=== PATIENT | female | born 1955 | race Caucasian/White ===

== ENCOUNTER 2016-06-19 09:23 | Outpatient (CLI) | payer MEDICARE ==
[2016-06-19 12:44] LABS: Hemoglobin A1c 5.6 % (4.0-6.0)
== END 2016-06-19 09:24 ==
LOC: NAVSJIPCSP 09:23
PROVIDERS: ATTEND Internal Medicine
DX: E78.5 Hyperlipidemia, unspecified (principal); E08.40 Diabetes mellitus due to underlying condition with diabetic neuropathy, unspecified
CPT/HCPCS: 36415; 80061; 83036

== ENCOUNTER 2016-09-14 10:13 | Outpatient (CLI) | payer MEDICARE ==
[2016-09-14 13:32] LABS: Cardiac Risk 2.8 (Less than 4.5)
[2016-09-14 14:02] LABS: Hemoglobin A1c 5.7 % (4.0-6.0)
== END 2016-09-14 10:14 | disposition home or self-care (01) ==
LOC: NAVSJIPCSP 10:13
PROVIDERS: ATTEND Internal Medicine
DX: E78.5 Hyperlipidemia, unspecified (principal); E08.40 Diabetes mellitus due to underlying condition with diabetic neuropathy, unspecified
CPT/HCPCS: 36415; 80061; 83036

== ENCOUNTER 2016-12-23 09:14 | Outpatient (CLI) | payer MEDICARE ==
[2016-12-23 17:25] LABS: Hemoglobin A1c 5.7 % (4.0-6.0)
[2016-12-23 18:25] LABS: Cardiac Risk 3.2 (Less than 4.5)
== END 2016-12-23 09:15 | disposition home or self-care (01) ==
LOC: NAVSJIPCSP 09:14
PROVIDERS: ATTEND Internal Medicine
DX: E08.40 Diabetes mellitus due to underlying condition with diabetic neuropathy, unspecified (principal); E78.5 Hyperlipidemia, unspecified; Z79.899 Other long term (current) drug therapy
CPT/HCPCS: 36415; 80061; 83036

== ENCOUNTER 2017-01-28 23:42 | Emergency (ER) | payer MEDICARE ==
[2017-01-28] MEDS ORDERED: Acetaminophen 500 MG TAB ONE (23:53)
--- NOTE | 2017-01-29 07:00 | RAD ---
LEFT FOOT THREE VIEWS HISTORY: Left foot injury. FINDINGS: Lisfranc joint alignment is anatomic. Plantar arch is maintained. Plantar enthesophyte is noted. There is mild osteophytosis. No acute fracture or dislocation. IMPRESSION: No acute osseous abnormalities are demonstrated. POS: [facility]
== END 2017-01-29 00:25 | disposition home or self-care (01) ==
LOC: NAV ERS 23:42
DX: S93.602A Unspecified sprain of left foot, initial encounter (principal); E03.9 Hypothyroidism, unspecified; I10 Essential (primary) hypertension; F17.210 Nicotine dependence, cigarettes, uncomplicated; F32.9 Major depressive disorder, single episode, unspecified; G35 Multiple sclerosis; W01.0XXA Fall on same level from slipping, tripping and stumbling without subsequent striking against object, initial encounter

== ENCOUNTER 2018-04-28 09:32 | Emergency (ER) | payer MEDICARE ==
[2018-04-28] MEDS ORDERED: Lidocaine 1% (PF) 30 ML VIAL ONE ×2 (09:50→10:02)
[2018-04-28] MEDS ORDERED: Adacel (T-DAP) 0.5 ML SYRINGE ONE (10:15)
== END 2018-04-28 10:37 | disposition home or self-care (01) ==
LOC: NAV ERS 09:32
DX: S81.812A Laceration without foreign body, left lower leg, initial encounter (principal); E78.5 Hyperlipidemia, unspecified; I10 Essential (primary) hypertension; F32.9 Major depressive disorder, single episode, unspecified; F17.210 Nicotine dependence, cigarettes, uncomplicated; Z79.84 Long term (current) use of oral hypoglycemic drugs; Z79.899 Other long term (current) drug therapy; W25.XXXA Contact with sharp glass, initial encounter
CPT/HCPCS: 12002; 90471; 90715; J2001

== ENCOUNTER 2018-05-07 11:37 | Emergency (ER) | payer MEDICARE | END 2018-05-07 12:29 | disposition home or self-care (01) | LOC: NAV ERS 11:37 | DX: S81.812D Laceration without foreign body, left lower leg, subsequent encounter (principal); I10 Essential (primary) hypertension; E78.5 Hyperlipidemia, unspecified; E11.9 Type 2 diabetes mellitus without complications; F17.210 Nicotine dependence, cigarettes, uncomplicated; F32.9 Major depressive disorder, single episode, unspecified; E03.9 Hypothyroidism, unspecified; Z79.899 Other long term (current) drug therapy; Z79.84 Long term (current) use of oral hypoglycemic drugs ==

== ENCOUNTER 2018-09-21 02:47 | Emergency (ER) | payer MEDICARE ==
[2018-09-21] MEDS ORDERED: Promethazine HCl 25 MG/ML VIAL ONE (03:25)
[2018-09-21 03:45] LABS: ALT (SGPT) 29 U/L (8-55); AST (SGOT) 30 U/L (5-34); Albumin 4.5 g/dL (3.4-4.8); Alkaline Phosphatase 93 U/L (40-150); Anion Gap 18 mmol/L (10-20); BUN (Urea Nitrogen) 25 mg/dL (9.8-20.1); Bilirubin, Total 0.5 mg/dL (0.2-1.2); Calc. Creatinine Clearance 0 mL/min (70-130); Calcium 9.6 mg/dL (7.8-10.44); Carbon Dioxide 19 mmol/L (23-31); Chloride 103 mmol/L (98-107); Estimated GFR-MDRD 75; Globulin 2.6 g/dL (2.4-3.5); Glucose 180 mg/dL (80-115); Potassium 3.9 mmol/L (3.5-5.1); Protein, Total 7.1 g/dL (6.0-8.3); Sodium 136 mmol/L (136-145)
[2018-09-21 03:46] LABS: Band 37 % (5-11); Hemoglobin 14.8 g/dL (12.0-16.0); Lymphocytes 1 % (21-51); MDiff Complete? YES; Mean Corpuscular HGB CONC 32.3 g/dL (32.0-36.0); Mean Corpuscular Hemoglobin 27.3 pg (27.0-31.0); Mean Corpuscular Volume 84.5 fL (78.0-98.0); Mean Platelet Volume 7.5 fL (7.4-10.4); Monocytes 7 % (0-10); Neutrophil 55 % (42-75); Platelet Count 214 thou/uL (130-400); Platelet Morphology Comment Appears Adequate; RBC Distribution Width 13.2 % (11.5-14.5); RBC Morphology Normal; Red Blood Cell (RBC) Count 5.43 mill/uL (4.20-5.40); White Blood Cell (WBC) Count 7.6 thou/uL (4.8-10.8)
[2018-09-21 05:03] LABS: Bilirubin Negative (Negative); Blood, Urine Small (Negative); Clarity Clear (Clear); Glucose, Urine (Dipstick) Negative (Negative); Leukocyte Negative (Negative); Nitrite Negative (Negative); Protein, Urine (Dipstick) Negative (Neg-Trace); Urobilinogen 0.2 mg/dL (0.2-1.0); pH, Urine 5.5 (5.0-9.0)
[2018-09-21 05:05] LABS: Bacteria/HPF None Seen HPF (None Seen); RBC/HPF 0-3 HPF (0-3); Squamous Epithelial 0-3 HPF (0-3); WBC/HPF None Seen HPF (0-3)
== END 2018-09-21 05:33 | disposition home or self-care (01) ==
LOC: NAV ERS 02:47
DX: K52.9 Noninfective gastroenteritis and colitis, unspecified (principal); E11.9 Type 2 diabetes mellitus without complications; E03.9 Hypothyroidism, unspecified; E78.5 Hyperlipidemia, unspecified; I10 Essential (primary) hypertension; F32.9 Major depressive disorder, single episode, unspecified; F17.210 Nicotine dependence, cigarettes, uncomplicated; Z79.899 Other long term (current) drug therapy; Z79.84 Long term (current) use of oral hypoglycemic drugs
CPT/HCPCS: 80053; 81003; 81015; 82274; 85025; 96361; 96374; J2550

== ENCOUNTER 2022-09-24 12:48 | Emergency (ER) | payer MEDICARE ==
[2022-09-24] MEDS ORDERED: diphenhydrAMINE 25 MG CAP ONE (13:17)
[2022-09-24 13:48] LABS: Hemoglobin 13.8 g/dL (12.0-16.0); Mean Corpuscular HGB CONC 32.5 g/dL (32.0-36.0); Mean Corpuscular Hemoglobin 28.2 pg (27.0-31.0); Mean Corpuscular Volume 86.9 fl (78.0-98.0); Mean Platelet Volume 7.4 fL (7.4-10.4); Platelet Count 225 10x3/uL (130-400); RBC Distribution Width 11.8 % (11.5-14.5); Red Blood Cell (RBC) Count 4.87 mill/uL (4.20-5.40)
[2022-09-24 13:51] LABS: MDiff Complete? YES; Manual Diff?? YES
[2022-09-24 13:52] LABS: ALT (SGPT) 16 U/L (8-55); AST (SGOT) 14 U/L (5-34); Albumin 4.3 g/dL (3.4-4.8); Alkaline Phosphatase 86 U/L (40-110); Anion Gap 15 mmol/L (10-20); BUN (Urea Nitrogen) 21 mg/dL (9.8-20.1); Bilirubin, Total 0.3 mg/dL (0.2-1.2); Calc. Creatinine Clearance 0 mL/min (70-130); Calcium 9.8 mg/dL (7.8-10.44); Carbon Dioxide 24 mmol/L (23-31); Chloride 106 mmol/L (98-107); Estimated GFR 96; Globulin 2.4 g/dL (2.4-3.5); Glucose 119 mg/dL (80-115); Protein, Total 6.7 g/dL (5.8-8.1); Sodium 141 mmol/L (136-145)
[2022-09-24 13:54] LABS: Eosinophils 2 % (0-10); Lymphocytes 11 % (21-51); Monocytes 9 % (0-10); Neutrophil 77 % (42-75); Reactive Lymphocytes 1 % (0-10)
[2022-09-24 13:55] LABS: Platelet Morphology Comment Appears Adequate
== END 2022-09-24 14:08 | disposition home or self-care (01) ==
LOC: NAV ERS 12:48
DX: H53.8 Other visual disturbances (principal); T46.5X5A Adverse effect of other antihypertensive drugs, initial encounter; E11.9 Type 2 diabetes mellitus without complications; E78.5 Hyperlipidemia, unspecified; I10 Essential (primary) hypertension; F17.210 Nicotine dependence, cigarettes, uncomplicated
CPT/HCPCS: 36415; 80053; 85025; 99283

== ENCOUNTER 2024-05-15 10:28 | Emergency (ER) | payer MEDICARE ==
[2024-05-15] MEDS ORDERED: Ibuprofen 800 MG TAB ONE (11:00)
[2024-05-15] MEDS ORDERED: Acetaminophen 500 MG TAB ONE (11:05)
== END 2024-05-15 11:38 | disposition home or self-care (01) ==
LOC: NAV ERS 10:28
DX: M25.571 Pain in right ankle and joints of right foot (principal); E11.9 Type 2 diabetes mellitus without complications; E78.5 Hyperlipidemia, unspecified; I10 Essential (primary) hypertension; F17.210 Nicotine dependence, cigarettes, uncomplicated; Z79.84 Long term (current) use of oral hypoglycemic drugs; Z79.82 Long term (current) use of aspirin; Z79.899 Other long term (current) drug therapy
CPT/HCPCS: 99283